=== PATIENT | female | born 1975 | race Caucasian/White ===

== ENCOUNTER 2021-10-08 17:56 | Emergency (ER) | payer MEDICAID ==
[~2021-10-08] VITALS: Ht 157.5 cm; Wt 63.0 kg
[2021-10-08 18:21] VITALS: BP 151/105
--- NOTE | 2021-10-08 18:25 | NUR ---
PT TO LOBBY TO WAIT.
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
[2021-10-08] MEDS ORDERED: HYDROcodone/APAP 5/325 MG 1 TAB TAB PO ONE (19:20)
[2021-10-08] MEDS ORDERED: IBUPROFEN 600 MG TAB ONE (19:34)
[2021-10-08] MEDS ORDERED: IBUPROFEN 600 MG TAB PO ONE (19:35)
[2021-10-08] MEDS ORDERED: IBUP-2213 PO (21:31)
[2021-10-08 21:57] VITALS: BP 151/105
== END 2021-10-08 22:02 | disposition home or self-care (01) ==
LOC: MED 17:56
DX: M25.512 Pain in left shoulder (principal); V89.2XXA Person injured in unspecified motor-vehicle accident, traffic, initial encounter; Y93.89 Activity, other specified; Y92.89 Other specified places as the place of occurrence of the external cause; Y99.8 Other external cause status
CPT/HCPCS: 73030; 99283